=== PATIENT | male | born 1965 | race Caucasian/White ===

== ENCOUNTER 2016-09-24 08:53 | Emergency (ER) | payer OTHER ==
[2016-09-24 09:06] VITALS: BP 121/80
--- NOTE | 2016-09-24 09:16 | UC ---
Throat Pain/Nasal Vasu HPI - HPI Summary HPI Summary: sinus pain and pressure x 3 days + nasal congestion ,pnd, no fever, no cough - History of Current Complaint Chief Complaint: UCRespiratory Stated Complaint: SINUS COMPLAINT Time Seen by Provider: 09/24/16 08:58 Hx Obtained From: Patient Onset/Duration: Gradual Onset, Lasting Days - 3, Still Present Severity: Moderate Cough: None Associated Signs & Symptoms: Positive: Sinus Discomfort, Nasal Discharge. Negative: Fever, Rash - Allergies/Home Medications Allergies/Adverse Reactions: Allergies Allergy/AdvReac Type Severity Reaction Status Date / Time No Known Allergies Allergy Verified 09/24/16 08:59 Home Medications: Home Medications Atorvastatin* [Lipitor*] 10 mg PO DAILY 09/24/16 [History Confirmed 09/24/16] DULoxetine DR CAP* [Cymbalta CAP*] 20 mg PO DAILY 09/24/16 [History Confirmed ] Dulaglutide [Trulicity] 0.75 mg SC WEEKLY 09/24/16 [History Confirmed 09/24/16] Valsartan TAB* [Diovan TAB*] 80 mg PO DAILY 09/24/16 [History Confirmed 09/24/16 ] amLODIPine TAB* [Norvasc TAB*] 5 mg PO DAILY 09/24/16 [History Confirmed ] metFORMIN* [Glucophage*] 500 mg PO BID 09/24/16 [History Confirmed 09/24/16] PMH/Surg Hx/FS Hx/Imm Hx Endocrine History Of: Reports: Diabetes Cardiovascular History Of: Reports: Hypertension - Surgical History Surgical History: None - Family History Known Family History: Positive: Diabetes - Social History Alcohol Use: None Substance Use Type: None Smoking Status (MU): Never Smoked Tobacco Review of Systems Constitutional: Negative Skin: Negative Eyes: Negative ENT: Sore Throat, Ear Ache, Nasal Discharge Respiratory: Negative Cardiovascular: Negative Gastrointestinal: Negative Genitourinary: Negative All Other Systems Reviewed And Are Negative: Yes Physical Exam Triage Information Reviewed: Yes Appearance: Well-Appearing, No Pain Distress, Well-Nourished Vital Signs: Initial Vital Signs Temp 97.4 F 09/24/16 09:02 Pulse 88 09/24/16 09:02 Resp 18 09/24/16 09:02 BP 121/80 09/24/16 09:02 Pulse Ox 97 09/24/16 09:02 Eye Exam: Normal ENT: Positive: Normal ENT inspection, Hearing grossly normal, Pharyngeal erythema, Nasal congestion, Nasal drainage, TMs normal. Negative: TM bulging, TM dull, TM red Neck: Positive: Supple, Nontender, No Lymphadenopathy Respiratory: Positive: Chest non-tender, Lungs clear, Normal breath sounds Cardiovascular: Positive: RRR, No Murmur, Pulses Normal Throat Pain/Nasal Course/Dx - Differential Dx/Diagnosis Provider Diagnoses: sinusitis Discharge - Discharge Plan Condition: Stable Disposition: HOME Prescriptions: Amoxicillin/Clavulanate TAB* [Augmentin TAB 875*] 875 mg PO BID #20 tab Patient Education Materials: Sinusitis (ED) Additional Instructions: follow up with your pcp as needed
== END 2016-09-24 09:29 | disposition home or self-care (01) ==
LOC: UCCORT 08:53
DX: J32.9 Chronic sinusitis, unspecified (principal); I10 Essential (primary) hypertension; E11.9 Type 2 diabetes mellitus without complications
CPT/HCPCS: 99202; G0463